=== PATIENT | female | born 1940 | race Caucasian/White ===

== ENCOUNTER 2016-08-11 20:50 | Emergency (ER) | payer MEDICARE ==
[~2016-08-11] VITALS: Ht 162.6 cm; Wt 49.9 kg
--- NOTE | 2016-08-11 21:00 | NUR ---
To bed 7 a 75 yo female bibself with c/o laceration on forehead, abrasions of upper and lower extremities, left wrist pain s/p witnessed trip and fall. -KO. Patient is aaox4, ambulating with steady gait. Denies headache, n/v. VSS. Gowned. Initiated comfort measures. Awaiting for er md moise.
[2016-08-11] MEDS ORDERED: TDAP [DIPH/PERTUSSIS/TET] 0.5 ML VIAL IM ONE ×2 (21:30)
--- NOTE | 2016-08-11 22:05 | NUR ---
xr tech at bedside.
--- NOTE | 2016-08-11 22:10 | NUR ---
Patient refused ct scan, in spite health teachings and encouragement.
--- NOTE | 2016-08-11 22:54 | NUR ---
Wound care done. No bleeding noted on dressings. Patient discharged to home in stable condition. Written and verbal after care instructions given. Patient verbalizes understanding of instruction. Patient is ambulatory with a steady gait, accompanied by son.
[2016-08-11 22:55] VITALS: BP 148/77
== END 2016-08-11 22:56 | disposition home or self-care (01) ==
LOC: ER 20:54
DX: S01.81XA Laceration without foreign body of other part of head, initial encounter (principal); I25.10 Atherosclerotic heart disease of native coronary artery without angina pectoris; Z88.0 Allergy status to penicillin; W01.10XA Fall on same level from slipping, tripping and stumbling with subsequent striking against unspecified object, initial encounter; Y93.89 Activity, other specified; Y92.89 Other specified places as the place of occurrence of the external cause; Y99.8 Other external cause status
CPT/HCPCS: 12011; 73130; 90471; 90715; 99284; A4606; A6402; Z7610